=== PATIENT | female | born 1965 | race Caucasian/White ===

== ENCOUNTER 2017-07-27 11:53 | Emergency (ER) | payer OTHER ==
[~2017-07-27] VITALS: Ht 157.5 cm; Wt 114.4 kg
[~2017-07-27 11:53] MED LIST: ACET-7604 PO; LORA-476 PO; RABE20EC PO; RANI150T8 PO
[2017-07-27 12:09] VITALS: BP 139/78
--- NOTE | 2017-07-27 14:19 | NUR ---
Patient ambulated to bed 3 with family. RN evaluating patient.
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
[2017-07-27 16:15] VITALS: BP 126/80
--- NOTE | 2017-07-27 16:15 | NUR ---
Patient discharged with v/s stable. Written and verbal after care instructions given and explained. Patient alert, oriented and verbalized understanding of instructions. Ambulatory with steady gait. All questions addressed prior to discharge. ID band removed. Patient advised to follow up with PMD. Rx of CODEINE PHOSPHATE/PROMETHAZINE HYDROCHLORIDE given. Patient educated on indication of medication including possible reaction and side effects. Opportunity to ask questions provided and answered.
== END 2017-07-27 16:15 | disposition home or self-care (01) ==
LOC: MED 11:53
DX: J06.9 Acute upper respiratory infection, unspecified (principal); K21.9 Gastro-esophageal reflux disease without esophagitis; I10 Essential (primary) hypertension; Z88.1 Allergy status to other antibiotic agents
CPT/HCPCS: 71045; 99283; Q0092